=== PATIENT | female | born 1970 | race Caucasian/White ===

== ENCOUNTER → 2018-07-24 | Outpatient (CLI) | payer OTHER | END | disposition home or self-care (01) | LOC: RAD 08:59 | PROVIDERS: ATTEND Internal Medicine Critical Care Medicine | DX: J45.20 Mild intermittent asthma, uncomplicated (principal); R06.02 Shortness of breath | CPT/HCPCS: 71046 ==

== ENCOUNTER → 2020-08-28 | Outpatient (CLI) | payer OTHER | END | disposition home or self-care (01) | LOC: CFH 15:08 | PROVIDERS: ATTEND Internal Medicine | DX: N63.22 Unspecified lump in the left breast, upper inner quadrant (principal) | CPT/HCPCS: 76642; 77066; G0279 ==

== ENCOUNTER → 2020-09-11 | Outpatient (CLI) | payer OTHER ==
[~2020-09-11] MED LIST: LIDOCAINE 1%, 20ML ONE; SODIUM BICARBONATE 4.2%, 5ML ONE
== END | disposition home or self-care (01) ==
LOC: CFH 10:19
PROVIDERS: ATTEND Internal Medicine
DX: C50.212 Malignant neoplasm of upper-inner quadrant of left female breast (principal); Z17.0 Estrogen receptor positive status [ER+]
CPT/HCPCS: 19083; 77065; 88305; 88341; 88342; 88360; J3490

== ENCOUNTER → 2020-10-02 | Outpatient (CLI) | payer OTHER ==
[~2020-10-02] MED LIST changes: +ACET-1600 PO; +ALBU8.5H8 INH; +CLON1TAB11 PO; +GABA400C PO; -LIDOCAINE 1%, 20ML ONE; +QUET100T PO; +SERT100T32 PO; -SODIUM BICARBONATE 4.2%, 5ML ONE; +Symbicort INH
== END | disposition home or self-care (01) ==
LOC: STAR 10:23
PROVIDERS: ATTEND Surgery
DX: Z20.828 Contact with and (suspected) exposure to other viral communicable diseases (principal); C50.212 Malignant neoplasm of upper-inner quadrant of left female breast
CPT/HCPCS: 87635

== ENCOUNTER 2020-10-06 07:18 | Outpatient (CLI) | payer OTHER ==
[2020-10-06] MEDS ORDERED: LIDOCAINE 1%, 20ML ONE (08:11)
[2020-10-06] MEDS ORDERED: SODIUM BICARBONATE 4.2%, 5ML ONE (08:11)
== END 2020-10-06 23:59 | disposition home or self-care (01) ==
LOC: CFH 07:18
PROVIDERS: ATTEND Surgery
DX: C50.212 Malignant neoplasm of upper-inner quadrant of left female breast (principal); J45.909 Unspecified asthma, uncomplicated; I10 Essential (primary) hypertension; E78.5 Hyperlipidemia, unspecified; F10.21 Alcohol dependence, in remission; Z79.899 Other long term (current) drug therapy
CPT/HCPCS: 19285; 77065; J3490

== ENCOUNTER 2020-10-08 12:16 | Day surgery (SDC) | payer OTHER ==
[~2020-10-08] VITALS: Ht 161.3 cm; Wt 91.0 kg
[2020-10-08] MEDS ORDERED: LACTATED RINGERS 1,000 ML IV SCH (13:00)
[2020-10-08] MEDS ORDERED: CHLORHEXIDINE 15 ML UDC MM ONE (13:00)
[2020-10-08 13:01] VITALS: BP 123/85
[2020-10-08] MEDS ORDERED: SIMV10TA18 PO (13:05)
[2020-10-08] MEDS ORDERED: LEVO75TA5 PO (13:05)
[2020-10-08] MEDS ORDERED: BUPIVACAINE/PF 0.5% ONE (14:17)
[2020-10-08] MEDS ORDERED: ISOSULFAN BLUE 10 MG/ML, 5ML IV ONE (14:17)
[2020-10-08] MEDS ORDERED: EPINEPHRINE 1 MG/ML, 1ML ONE (14:17)
[2020-10-08] MEDS ORDERED: FENTANYL PF 250 MCG/5ML ONE (14:30)
[2020-10-08] MEDS ORDERED: MIDAZOLAM 1 MG/ML, 2ML ONE (14:30)
[2020-10-08] MEDS ORDERED: ACETAMINOPHEN 500 MG TABLET PO ONE (14:30)
[2020-10-08] MEDS ORDERED: SCOPOLAMINE 1MG PATCH TD SCH (14:30)
[2020-10-08] MEDS ORDERED: DEXAMETHASONE 4 MG/ML, 1ML ONE (14:48)
[2020-10-08] MEDS ORDERED: PROPOFOL 50 ML ONE ×2 (14:54→15:43)
[2020-10-08] MEDS ORDERED: KETOROLAC 30 MG/1 ML ONE (15:49)
[2020-10-08] MEDS ORDERED: NEOSTIGMINE 1 MG/ML, 10ML ONE (15:58)
[2020-10-08] MEDS ORDERED: PROPOFOL 10 MG/ML, 20ML ONE (15:58)
[2020-10-08] MEDS ORDERED: ONDANSETRON 2MG/ML, 2ML ONE (15:58)
[2020-10-08] MEDS ORDERED: CEFAZOLIN 1,000 MG ONE (15:58)
[2020-10-08] MEDS ORDERED: GLYCOPYRROLATE 0.2MG/1ML, 5ML ONE (15:58)
[2020-10-08] MEDS ORDERED: ROCURONIUM 10MG/ML,5ML ONE (15:58)
[2020-10-08] MEDS ORDERED: ALBUTEROL SULFATE 2.5 MG/3 ML NPPB PRN (16:00)
[2020-10-08] MEDS ORDERED: FENTANYL PF 100 MCG/2ML IV PRN (16:00)
[2020-10-08] MEDS ORDERED: LABETALOL 5MG/ML, 20ML IV PRN ×2 (16:00→17:00)
[2020-10-08] MEDS ORDERED: OXYcodone 5 MG/5 ML ORAL.SOL UDC PO PRN (16:00)
[2020-10-08] MEDS ORDERED: PROMETHAZINE 25 MG/ML, 1ML IVPush PRN (16:00)
[2020-10-08] MEDS ORDERED: hydrALAzine 20 MG/ML, 1ML IV PRN (16:00)
[2020-10-08] MEDS ORDERED: HYDROmorphone 1 MG/ML, 1ML INJ IVPush PRN (16:00)
[2020-10-08] MEDS ORDERED: LORazepam 2 MG/ML, 1ML IVPush PRN (16:00)
[2020-10-08] MEDS ORDERED: MEPERIDINE/PF 25MG/0.5ML IVPush PRN (16:00)
[2020-10-08] MEDS ORDERED: OXYcodone 5 MG/5 ML ORAL.SOL UDC ONE (16:29)
[2020-10-08] MEDS ORDERED: HYDROcodone/APAP 5/325 TABLET PO PRN (17:00)
[2020-10-08] MEDS ORDERED: DIPHENHYDRAMINE 50 MG/ML, 1ML IVPush PRN (17:00)
[2020-10-08] MEDS ORDERED: ONDANSETRON 2MG/ML, 2ML IVPush PRN (17:00)
[2020-10-08] MEDS ORDERED: morphine SULFATE 10 MG/ML, 1ML IVPush PRN (17:00)
[2020-10-08] MEDS ORDERED: KETOROLAC 30 MG/1 ML IVPush PRN (17:00)
== END 2020-10-08 19:40 | disposition home or self-care (01) ==
LOC: OUT 12:16
PROVIDERS: ATTEND Surgery
DX: C50.212 Malignant neoplasm of upper-inner quadrant of left female breast (principal); E03.9 Hypothyroidism, unspecified; J45.909 Unspecified asthma, uncomplicated; I10 Essential (primary) hypertension; E78.5 Hyperlipidemia, unspecified; F17.210 Nicotine dependence, cigarettes, uncomplicated; K21.9 Gastro-esophageal reflux disease without esophagitis; I25.10 Atherosclerotic heart disease of native coronary artery without angina pectoris; Z79.899 Other long term (current) drug therapy; Z98.890 Other specified postprocedural states
CPT/HCPCS: 19301; 38525; 38792; 76098; 88305; 88307; 88333; A9541; J0171; J0690; J1100; J1885; J2250; J2405; J2704; J2710; J3010; J7120

== ENCOUNTER → 2020-11-20 | Outpatient (CLI) | payer OTHER ==
[~2020-11-20] MED LIST changes: +LEVO75TA5 PO; +SIMV10TA18 PO
== END | disposition home or self-care (01) ==
LOC: ROC 09:41
PROVIDERS: ATTEND Radiology Radiation Oncology
DX: C50.212 Malignant neoplasm of upper-inner quadrant of left female breast (principal); I25.10 Atherosclerotic heart disease of native coronary artery without angina pectoris; I10 Essential (primary) hypertension; K21.9 Gastro-esophageal reflux disease without esophagitis; E78.5 Hyperlipidemia, unspecified; E03.9 Hypothyroidism, unspecified; J45.909 Unspecified asthma, uncomplicated; Z87.891 Personal history of nicotine dependence; Z79.899 Other long term (current) drug therapy; Z98.890 Other specified postprocedural states
CPT/HCPCS: 99214; G0463

== ENCOUNTER → 2021-03-26 | Outpatient (CLI) | payer OTHER ==
[~2021-03-26] MED LIST changes: +HYDR-2214 PO
== END | disposition home or self-care (01) ==
LOC: ROC 01-22 07:19
PROVIDERS: ATTEND Radiology Radiation Oncology
DX: Z08 Encounter for follow-up examination after completed treatment for malignant neoplasm (principal); Z85.3 Personal history of malignant neoplasm of breast
CPT/HCPCS: 99213; G0463

== ENCOUNTER → 2021-04-21 | Outpatient (CLI) | payer OTHER | END | disposition home or self-care (01) | LOC: CFH 09:16 | PROVIDERS: ATTEND Radiology Radiation Oncology | DX: C50.212 Malignant neoplasm of upper-inner quadrant of left female breast (principal) | CPT/HCPCS: 77061; 77065; G0279 ==